=== PATIENT | male | born 1950 | race Two or more races ===

== ENCOUNTER → 2022-06-27 | Day surgery (SDC) | payer MEDICARE ==
[~2022-06-27] MED LIST: CARBAMAZEPINE200 M2 PO; CLONAZEPAM0.5 MG PO; DEXAMETHASONE SOD PHOS INJ 4 MG/ML SDV ONE; IBUPROFEN200 MG PO; LIDOCAINE HCL 2% LOCAL INJ 5 ML SDV VIAL INJ ONE; ONDANSETRON HCL INJ 2MG/ML 2ML 2 MG/ML VIAL ONE; OR PHACO EYE KIT ONE; PAROXETINE HCL40 MG PO; POVIDONE IODINE 0.05% 0.05 % ML PO ONE; PREOP PHACO EYE KIT ONE; PROPOFOL IV EMULSION 10 MG/ML 20 ML VIAL ONE; SEVOFLURANE INHAL SOLN 250 ML PEN BTL ONE
[2022-06-27 10:50] VITALS: BP 149/76
== END | disposition home or self-care (01) ==
LOC: OR 07:41
PROVIDERS: ATTEND Ophthalmology
DX: H25.11 Age-related nuclear cataract, right eye (principal); Z01.818 Encounter for other preprocedural examination; Z79.899 Other long term (current) drug therapy
CPT/HCPCS: 66984; 71046; J1100; J2001; J2405; J2704; V2632